=== PATIENT | male | born 1995 | race Caucasian/White ===

== ENCOUNTER 2018-07-22 22:14 | Emergency (ER) | payer BC ==
[2018-07-23] MEDS ORDERED: Ondansetron ODT TAB* 4 MG SL ONE ×2 (00:31→03:00)
--- NOTE | 2018-07-23 00:39 | ED ---
GI/ HPI - HPI Summary HPI Summary: The patient is a 22 y/o M presenting to [facility] with a chief complaint of nausea and vomiting a few times since 20:00 last night. He denies abd pain, diarrhea, and fever. He has been drinking water and Gatorade but hasn't able to keep it down. The pain is currently rate 5/10 in severity. No surgeries or abd hx. On testosterone for transgender. - History of Current Complaint Chief Complaint: EDNauseaVomitDiarrh Time Seen by Provider: 07/23/18 00:28 Stated Complaint: VOMITING/SWEATING/SHAKING PER PT Hx Obtained From: Patient Onset/Duration: Started Hours Ago - at 20:00 last night, Still Present Timing: Lasting Hours Severity: Moderate Current Severity: Mild Pain Intensity: 5 Pain Characteristics: Dull Associated Signs and Symptoms: Positive: Nausea, Vomiting, Other: - NEGATIVE: diarrhea. Negative: Fever, Abdominal Pain Aggravating Factor(s): Food Alleviating Factor(s): Nothing - Allergy/Home Medications Allergies/Adverse Reactions: Allergies Allergy/AdvReac Type Severity Reaction Status Date / Time No Known Allergies Allergy Verified 07/22/18 22:20 PMH/Surg Hx/FS Hx/Imm Hx Endocrine/Hematology History: Denies: Hx Diabetes Respiratory History: Denies: Hx Asthma GI History: Denies: Hx Crohn's Disease - Surgical History Surgery Procedure, Year, and Place: none Infectious Disease History: No Infectious Disease History: Denies: Traveled Outside the [place] in Last 30 Days - Family History Known Family History: Negative: Diabetes - Social History Alcohol Use: None Hx Substance Use: No Substance Use Type: Reports: None Hx Tobacco Use: No Smoking Status (MU): Never Smoked Tobacco Review of Systems Negative: Fever Positive: Vomiting, Nausea. Negative: Abdominal Pain, Diarrhea All Other Systems Reviewed And Are Negative: Yes Physical Exam - Summary Physical Exam Summary: Appearance: Well-appearing, Well-nourished, lying in bed comfortably Skin: Warm, dry, no obvious rash Eyes: sclera anicteric, no conjunctival pallor ENT: mucous membranes moist, pharynx appears normal Neck: Supple, nontender Respiratory: Clear to auscultation, no signs of respiratory distress Cardiovascular: Normal S1, S2. No murmurs. Normal distal pulses in tibial and radial bilaterally. Abdomen: Soft, nontender, normal active bowel sounds present Musculoskeletal: Normal, Strength/ROM Intact Neurological: A&Ox3, awake and alert, mentation is normal, speech is fluent and appropriate Psychiatric: affect is normal, does not appear anxious or depressed Triage Information Reviewed: Yes Vital Signs On Initial Exam: Initial Vitals Temp Pulse Resp BP Pulse Ox 98.1 F 98 16 119/71 99 07/22/18 22:17 07/22/18 22:17 07/22/18 22:17 07/22/18 22:17 07/22/18 22:17 Vital Signs Reviewed: Yes Diagnostics - Vital Signs Vital Signs Temp Pulse Resp BP Pulse Ox 07/22/18 22:17 98.1 F 98 16 119/71 99 - Laboratory Lab Statement: Any lab studies that have been ordered have been reviewed, and results considered in the medical decision making process. GIGU Course/Dx - Course Course Of Treatment: The patient is a 22 y/o M with a chief complaint of nausea and vomiting a few times since 20:00 last night. He denies abd pain, diarrhea, and fever. He has been drinking water and Gatorade but hasn't able to keep it down. No surgeries or abd hx. Upon physical examination, there are no acute abnormalities. In the ED course, the patient was administered Zofran. He is diagnosed with gastritis. He will be discharged home with prescription for Zofran. He agrees with plan for follow up and return to ED if necessary. - Diagnoses Provider Diagnoses: Gastritis Discharge - Sign-Out/Discharge Documenting (check all that apply): Patient Departure - Patient will be discharged home. Patient Received Moderate/Deep Sedation with Procedure: No - Discharge Plan Condition: Good Disposition: HOME Prescriptions: Ondansetron ODT TAB* [Zofran 4 MG Odt TAB*] 8 mg PO Q6H PRN #14 tab.odt PRN Reason: Nausea Patient Education Materials: Acute Nausea and Vomiting (ED) Referrals: [facility] [Outside] - 3 Days (if not better) Additional Instructions: Follow up with your primary care provider in 3 days. Return to the emergency department for any new or worsening symptoms. - Billing Disposition and Condition Condition: GOOD Disposition: Home - Attestation Statements Document Initiated by Scribe: Yes Documenting Scribe: Carol Borrero Provider For Whom Scribe is Documenting (Include Credential): MD Ashley Asencioibe Attestation: I, Carol Borrero, scribed for Dr. Maurilio Stover MD on 07/23/18 at 0451. Scribe Documentation Reviewed: Yes Provider Attestation: The documentation as recorded by the ashleyibe, Carol Borrero accurately reflects the service I personally performed and the decisions made by me, Dr. Maurilio Stover MD Status of Scribe Document: Viewed
[2018-07-23 03:10] VITALS: BP 118/72
== END 2018-07-23 03:09 | disposition home or self-care (01) ==
LOC: ED 22:14
DX: K29.70 Gastritis, unspecified, without bleeding (principal); R11.2 Nausea with vomiting, unspecified
CPT/HCPCS: 99282; A9270-GY